=== PATIENT | female | born 1990 | race African-American/Black ===

== ENCOUNTER 2023-02-17 11:41 | Observation (INO) | payer OTHER, SELFPAY ==
--- NOTE | 2023-02-17 16:00 | OBADM ---
This patient, Parvin Monroy, admitted to the OB room Labor/Delivery/Recovery 103 for observation. Patient/family oriented to hospital policies and general routines including ID bracelet, bed and alarms, visiting hours, pain management, procedures, bathroom and other care routines, personal items, smoking policy, room service/diet, and visiting hours. Patient/Family are encouraged to report perceived risks to care and to ask questions if they do not understand what they are told or what they should do.
--- NOTE | 2023-02-24 07:50 | PM.OBTRLD ---
OB - Triage/Final Diagnosis Visit Information Comments/Additional reasons for admission: I have assessed the risk for this patient, Parvin Monroy, and determined that she would benefit from observation care. Final Diagnosis (1) False labor after 37 completed weeks of gestation: Code(s): O47.1 - False labor at or after 37 completed weeks of gestation Status: Acute
== END 2023-02-17 14:35 | disposition home or self-care (01) ==
PROVIDERS: Admitting Provider Obstetrics & Gynecology; Visit Provider Obstetrics & Gynecology
DX: O47.1 False labor at or after 37 completed weeks of gestation (principal); Z3A.38 38 weeks gestation of pregnancy
CPT/HCPCS: 96365; 96375; A9270; G0378; G0379; J1200; J1756

== ENCOUNTER 2023-02-22 05:57 | Inpatient (IN) | payer OTHER, SELFPAY ==
[2023-02-22] VITALS (192 sets, daily range): BP systolic 96–130; BP diastolic 55–88; PULSE 64–133; RESP 16–18; TEMP 36.4–36.9; O2SAT 63–100; BMI 41.4
[2023-02-22 06:47] LABS: Basophils Percent Auto 0.4 % (0.2-1.2); Eosinophils Absolute Auto 0.1 K/mm3 (0-0.3); Eosinophils Percent Auto 0.7 % (0-4.4); Hematocrit 28.9 % (37.0-47.0); Hemoglobin 8.8 g/dL (12.0-15.0); Immature Granulocyte Absolute 0.21 K/mm3 (0.00-0.031); Immature Granulocyte Percent A 2.6 % (0-0.5); Lymphocytes Absolute Auto 1.93 K/mm3 (0.9-3.2); Mean Corpuscular HGB Conc 30.4 g/dl (32-36); Mean Corpuscular Hemoglobin 23.8 pg (26-34); Mean Corpuscular Volume 78.3 fl (80-100); Mean Platelet Volume 9.8 fl (7.4-10.4); Monocytes Absolute Auto 0.4 K/mm3 (0.1-0.6); Monocytes Percent Auto 4.8 % (2.6-8.5); Neutrophils Absolute Auto 5.4 K/mm3 (1.3-6.7); Neutrophils Percent Auto 67.5 % (45.5-73.1); Platelet Count Result 205 k/mm3 (150-375); Red Blood Count 3.69 M/mm3 (4.2-5.4); White Blood Count 8.1 K/mm3 (4.5-10.0)
[2023-02-22] MEDS: LACTATED RINGERS 1,000 ML 125 ML IV CONT ×3 (07:07→20:07)
[2023-02-22 07:08] LABS: Anisocytosis 2+ (NORMAL); Hypochromasia 1+ (NORMAL); Macrocytosis 1+ (NORMAL); Microcytosis 1+ (NORMAL); Platelet Estimate Adequate (Adequate)
[2023-02-22 07:09] LABS: Schistocytes None Seen (NORMAL)
--- NOTE | 2023-02-22 07:29 | P.HP_ITS ---
H&P: HPI History of Present Illness Date/Time: 02/22/23 07:29 Chief Complaint: induction of labor Narrative: Parvin is a 33yo at 39.3 IOL for IUGR. Was scheduled for 39.0 but had no child care supervisor and had to cancel. Baby IUGR by AC 4%, EFW around 13-14%. She also has late care at 29w, anemia and has received two sets of IV iron. Review of Systems Review of Systems: All systems reviewed & are unremarkable except as noted in HPI and below [facility] Family History Family History Mother Hypertension Diabetes mellitus Grandparent Hypertension Diabetes mellitus Social History Social History Smoking status: Never smoker Substance use: never Lack of Transportation: No Lack of Food: Never True Current Housing: I Have Housing Concerned About Future Housing: No Difficulty Paying Gas/Electric Bills: No Difficulty Paying for Meds: No Currently Unemployed: No Education: Bachelor's Degree Difficulty w/ Childcare or Family Care: No Spiritual care concerns: No Meds Home Medications and Allergies Home Medications Medication Instructions Recorded Confirmed Type ferrous sulfate 325 mg (65 mg 325 mg PO BID 06/03/19 02/16/23 History iron) tablet vit no.95-ferrous 1 tablet PO DAILY 06/03/19 02/22/23 History fumarate 28 mg-folic acid 800 mcg tablet () Allergies Allergy/AdvReac Type Severity Reaction Status Date / Time No Known Allergies Allergy Unknown Unknown Verified 02/16/23 09:16 Vital Signs Vital Signs - 24 hr 02/22/23 06:31 02/22/23 06:46 02/22/23 07:01 Pulse Rate 77 70 75 Blood Pressure 107/67 112/68 105/67 Oxygen Delivery 02/22/23 07:16 02/22/23 07:11 Pulse Rate 74 Blood Pressure 96/70 L Oxygen Delivery Room Air Exam Const: General: no acute distress Resp: Effort & Inspection: normal respiratory effort Auscultation: clear to auscultation bilaterally Cardio: Rate: regular rate Rhythm: regular rhythm GI: GI Palp: Yes Soft to palpation Extrem: General: normal to inspection H&P: Results Labs Labs: Short CBC 02/22/23 Range/Units 06:43 WBC 8.1 (4.5-10.0) K/mm3 Hgb 8.8 L (12.0-15.0) g/dL Hct 28.9 L (37.0-47.0) % Plt Count 205 (150-375) k/mm3 Assessment and Plan Assessment and plan (1) IUGR (intrauterine growth restriction): Status: Acute (2) Anemia affecting : Code(s): O99.019 - Anemia complicating , unspecified trimester Status: Acute (3) Late care: Code(s): O09.30 - Supervision of with insufficient care, unspecified trimester Status: Acute Plan FHT category 1 GBS neg pitocin per protocol AROM clear IUPC placed SVE 4.5/80/-3/soft
[2023-02-22 10:57] LABS: Rapid Plasma Reagin Non-Reactive (NonReactive)
--- NOTE | 2023-02-22 11:09 | WPDANESEPP ---
Anes - Eval Pre Procedure Procedure: Labor Epidural Date/Time: 02/22/23 11:09 Surgeon: Armando Preop Diagnosis: Labor Pain Pre Op Diagnosis: IOL Patient Data Age: 33 Gender: F Height: 1.78 m Weight: 131 kg Last Vital Signs Pulse 81 02/22/23 11:07 BP 107/63 02/22/23 11:07 Pulse Ox 99 02/22/23 11:06 O2 Del Method Room Air 02/22/23 07:11 Allergies Allergy/AdvReac Type Severity Reaction Status Date / Time No Known Allergies Allergy Unknown Unknown Verified 02/16/23 09:16 Home Medications Medication Instructions Recorded Confirmed Type ferrous sulfate 325 mg (65 mg 325 mg PO BID 06/03/19 02/16/23 History iron) tablet vit no.95-ferrous 1 tablet PO DAILY 06/03/19 02/22/23 History fumarate 28 mg-folic acid 800 mcg tablet () Laboratory Tests 02/22/23 02/22/23 06:42 06:43 WBC 8.1 K/mm3 (4.5-10.0) RBC 3.69 L M/mm3 (4.2-5.4) Hgb 8.8 L g/dL (12.0-15.0) Hct 28.9 L % (37.0-47.0) MCV 78.3 L fl (80-100) MCH 23.8 L pg (26-34) MCHC 30.4 L g/dl (32-36) RDW 23.0 H % (11.5-14.5) Plt Count 205 k/mm3 (150-375) MPV 9.8 fl (7.4-10.4) Immature Gran % (Auto) 2.6 H % (0-0.5) Neut % (Auto) 67.5 % (45.5-73.1) Lymph % (Auto) 24.0 % (18.3-44.2) [place] % (Auto) 4.8 % (2.6-8.5) Eos % (Auto) 0.7 % (0-4.4) Baso % (Auto) 0.4 % (0.2-1.2) Lymph # (Auto) 1.93 K/mm3 (0.9-3.2) [place] # (Auto) 0.4 K/mm3 (0.1-0.6) Eos # (Auto) 0.1 K/mm3 (0-0.3) Baso # (Auto) 0.0 K/mm3 (0.0-0.1) Abs Immat Gran (auto) 0.21 H K/mm3 (0.00-0.031) Absolute Neuts (auto) 5.4 K/mm3 (1.3-6.7) Absolute Nucleated RBC 0.0 K/mm3 (0.0-0.012) Nucleated RBC % 0.0 % (0.0-0.2) Platelet Estimate Adequate (Adequate) Hypochromasia 1+ (NORMAL) Anisocytosis 2+ (NORMAL) Microcytosis 1+ (NORMAL) Macrocytosis 1+ (NORMAL) Schistocytes None seen (NORMAL) RPR Non-reactive (NonReactive) Blood Type O Positive Antibody Screen Negative Patient hx anesthesia problems: none and other (h/o PDPH, blood patch) Family hx anesthesia problems: none Results Review: All pre-operative results and documents have been reviewed as part of the pre-operative evaluation. [facility] Family History Family History Mother Hypertension Diabetes mellitus Grandparent Hypertension Diabetes mellitus Social History Social History Smoking status: Never smoker Substance use: never Lack of Transportation: No Lack of Food: Never True Current Housing: I Have Housing Concerned About Future Housing: No Difficulty Paying Gas/Electric Bills: No Difficulty Paying for Meds: No Currently Unemployed: No Education: Bachelor's Degree Difficulty w/ Childcare or Family Care: No Spiritual care concerns: No Exam Day of Procedure 02/22/23 11:09 Patient weight: morbidly obese Heart: regular rate and rhythm Lungs: normal air movement Airway: Mallampati scale class III Neurological: alert and oriented
[2023-02-22] MEDS: OXYTOCIN 30 UNITS/NS 500 ML 30 UNITS/500 ML BAG IV CONT (11:12)
[2023-02-22] MEDS: ACETAMINOPHEN 500 MG TABLET 1000 MG PO (12:13)
[2023-02-22] MEDS: OXYTOCIN 30 UNITS/NS 500 ML 30 UNITS/500 ML BAG 125 UNITS IV CONT (17:39)
--- NOTE | 2023-02-22 18:28 | PM.OBPRVD ---
OB - Delivery Note Procedure Delivery date: 02/22/23 Procedure: Induction method: AROM and Per Pitocin Protocol Delivery monitor: External FHT and Internal Uterine Route of delivery: Laceration Description: Perineal - 2nd Degree and Vaginal (multiple vaginal vault lacs) Delivery repair: vicryl Quantitative Blood Loss (ml): 965 (due to vault lacs) Anesthesia type: Epidural Disposition: Floor Complications: hemorrhage due to vault lacs, see note Narrative: With adequate expulsive efforts by the mother, the baby's head was delivered straight OP. The baby's anterior shoulder was delivered under the pubic symphysis without difficulty. Nuchal cord x3 reduced. The posterior shoulder and the rest of the baby delivered without difficulty. The was placed on the mothers chest and suctioned and stimulated. The cord was clamped and cut after 30 seconds. Mother and baby both stable. Following spontaneous delivery of the placenta, the second degree laceration was repaired. Hemorrhage was identified to continue, and atony was ruled out as a cause. Examination revealed multiple vaginal vault lacerations. Three of them were repaired, but the midline portion the sutures persistently pulled through the swollen tissue and hemostasis was not obtained after multiple attempts. A second IV was started, fluid bolus was given, and 2 units of blood were ordered. Pressure was held for 5 minutes with no bleeding while the pressure was held. Surgiflow was placed over the area and vaginal packing was placed. The vaginal packing was watched for 10 minutes and did not soak through. Baby Date of : 02/22/23 Time of : 17:01 Weeks of gestation at delivery: 39 Infant gender: Female Weight (pounds): 7 Weight (ounces): 14 presentation: vertex Placenta delivery description: Spontaneous Cord Vessel Description: 3 Vessels, Nuchal Cord (x3) and Delayed Cord Clamping score one minute: 9 score five minutes: 9
[2023-02-22 18:33] LABS: Hematocrit 28.8 % (37.0-47.0); Hemoglobin 8.8 g/dL (12.0-15.0)
[2023-02-22] MEDS: diphenhydrAMINE HCl INJ 50 MG/ML VIAL 25 MG IV PUSH (18:58)
[2023-02-22] MEDS: fentaNYL CITRATE INJ (*CRX) 100 MCG/2 ML VIAL 50 MCG IV PUSH (19:17)
[2023-02-22] MEDS: IBUPROFEN 600 MG TABLET PO (20:05)
[2023-02-22] MEDS: BENZOCAINE 20% AER SPR (*SP) 56 GM CAN 1 SPRAY TOPICAL (20:07)
[2023-02-22] MEDS: WITCH HAZEL 40 PADS 1 PAD TOPICAL (20:07)
[2023-02-22] MEDS: ceFAZolin 2 GM/D5W 50 ML 2 GM/50 ML BAG IVPB (20:07)
[2023-02-22] MEDS: HYDROcodone/acetaminophen (*CRX) 5-325 MG TABLET 1 TAB PO (22:06)
[2023-02-23] VITALS: BP 102/57; PULSE 78; RESP 16; TEMP 36.7
[2023-02-23] MEDS: HYDROcodone/acetaminophen (*CRX) 5-325 MG TABLET 1 TAB PO (04:00)
[2023-02-23 05:53] LABS: Hematocrit 27.3 % (37.0-47.0); Hemoglobin 8.5 g/dL (12.0-15.0)
--- NOTE | 2023-02-23 07:23 | PM.OBPNVD ---
OB - PN: Subj Subjective Date/time seen: 02/23/23 07:23 [place] baby status: doing well feeding status: breast and bottle feeding Narrative: back and vaginal pain. minimal pink bleeding through the vaginal pack. Hgb 8.5 after 2 units. Denies dizziness/GUTIERREZ. OB - PN: Obj Data Labs 02/23/23 04:02 Labs: Laboratory Results - last 24 hr 02/22/23 02/22/23 02/22/23 06:42 06:43 18:09 Hgb 8.8 L Hct 28.8 L RPR Non-reactive Blood Type O Positive Antibody Screen Negative Crossmatch See Detail 02/23/23 04:02 Hgb 8.5 L Hct 27.3 L RPR Blood Type Antibody Screen Crossmatch OB - PN A/P Plan day: 1 Plan: routine care Comments: vag pack removed, bleeding appears to have stopped, will monitor closely, discussed with RN repeat h/h in am tomorrow s/p 2 units pRBCs no sx anemia Time Spent With Patient Time: Total time spent is greater than 50% in coordination of care (as documented) at patient's floor/unit and/or counseling patient: Time with patient: less than 15 minutes Exam Narrative: NAD abdomen soft, nontender, fundus firm below the umbilicus Extremities nontender, 1+ edema vaginal packing removed. old dark blood and clot on it, no bright red blood seen on packing or at introitus.
[2023-02-23 08:34] VITALS: BP 119/71; PULSE 84; RESP 18; TEMP 36.2; O2SAT 100
[2023-02-23] MEDS: IRON SUCROSE COMPLEX 200 MG in SODIUM CHLORIDE 0.9% IV 50 ML 120 MG IVPB (09:00)
--- NOTE | 2023-02-23 10:10 | WPDANLDPN2 ---
Anes-Prog Note L&D Date/Time: 02/23/23 10:10 Comfortable throughout: labor and delivery Neuraxial method: epidural Epidural/Spinal procedure site: clean & non-tender Neuro status: Neuro function grossly intact. Cardiovascular status: normal Respiratory status: normal Airway patency: baseline Mental status: baseline Post-Op hydration status: normal Vital Signs: Last Vital Signs Temp 36.2 C L 02/23/23 08:34 Pulse 84 02/23/23 08:34 Resp 18 02/23/23 08:34 BP 119/71 02/23/23 08:34 Pulse Ox 100 02/23/23 08:34 O2 Del Method Room Air 02/22/23 07:11 Pain score (VAS): 0 I/O: Intake & Output 02/22/23 02/23/23 02/23/23 23:59 07:59 15:59 Intake Total 2180 281 Balance 2180 281 Post-procedural complaints: none Patient feedback: Patient satisfied with anesthetic care.
[2023-02-23] MEDS: SODIUM CHLORIDE 0.9% IV 250 ML 30 ML IV CONT (10:15)
[2023-02-23] MEDS: MULTIVIT/MIN/PREN/FOL AC/IRON TABLET 1 TAB PO (10:30)
[2023-02-23] MEDS: WITCH HAZEL 40 PADS 1 PAD TOPICAL (10:30)
[2023-02-23] MEDS: DOCUSATE SODIUM 100 MG CAPSULE PO (10:30)
[2023-02-23] MEDS: BENZOCAINE 20% AER SPR (*SP) 56 GM CAN 1 SPRAY TOPICAL (10:30)
[2023-02-23] MEDS: LANOLIN (LANSINOH) 7.5 GM CREAM 1 APPLIC TOPICAL (10:30)
[2023-02-23] MEDS: IBUPROFEN 600 MG TABLET PO ×2 (10:30→17:50)
[2023-02-23 12:26] VITALS: BP 123/72; PULSE 75; RESP 20; TEMP 36.2; O2SAT 99
--- NOTE | 2023-02-23 12:50 | PC.NURSE ---
[id number] Report received this morning regarding infant had been bottle fed 60mls at 0300 was incorrect. Mother fed a bottle at 0200 11mls and has attempted to breastfeed with no success and did not call for assistance. Introductions were made to assess needs once it was discovered that mother had been attempting at breast with no assistance and not bottle feeding either. Primary RN reported that she checked a blood sugar and it resulted at 74mg/dl. Mother works with her with a lot of encouragement and education. Encouraged understanding of the benefits of skin to skin (demonstrating unwrapping and placing upright on her chest), stimulating with massage touch, changing positions to encourage wakefulness, burping, checking the diaper, how to watch for early feeding cues, responsive feeding, feeding on demand (aiming for 8-12 times in 24 hours, about every 2-3 hours), milk production, hand expression, building/maintaining a milk supply, duration of feeding, signs of adequate intake/output and how to record on the feeding sheet. Infant demonstrates rare feeding cues and when they are demonstrated to mother, then we reviewed positioning, alignment, supporting the breast to facilitate a deep latch, asymmetrical latch (off-center), leading with the chin with a big, open, wide gape and body close to mother. is reluctant to open mouth and shows no efforts to latch to the breast. RN assisted mother in learning the skill of hand expression. was spoon fed three dime size drops of colostrum and mother observed her infant lapping up the milk off of the spoon. Mother voiced understanding of skin to skin, stimulating with massage touch, responsive feedings, hand expressed colostrum, talking to infant to encourage if it has been 2 -2.5 hours since the start of the last , to call if does not latch, or if there is discomfort with . was place upright [id number] with massage touch and went back to sleep. Mother states for the second time that this is what her first infant did. Encouraged mother to parent with wakefulness and calling for assistance to attempt again in 1-2 hours. Resources provided for inpatient with name written on the communication board. Mother voiced understanding of information and will call if there is a request for assistance. Reported to the Primary RN.
--- NOTE | 2023-02-23 14:02 | PCCCNOTE ---
Recvd consult due to pt. late to receive care. Pt. reports this is because she was in denial and working alot. Pt. reports having no concerns about the possible discharge home tomorrow 02/24. Pt. will be living at home with new baby, 3 year old son, and pt's grandmother. Pt. reports her grandmother is caring for her son while in the hospital. Pt. states her grandmother, her mother, and her S.O. are all supportive and that she has baby supplies. Pt. reports established with [facility], and in process of applying for [employer] [place]. Pt. states when she only had one child, she was over income for [employer] [place]. Pt. denies any prior DCFS involvement, and drug use during . resources provided to pt. Pt. states has first appt with oven worker on 02/26/23. Pt. denies further case management needs.
[2023-02-23 16:00] VITALS: BP 110/73; PULSE 81; RESP 18; TEMP 37; O2SAT 100
[2023-02-23 18:20] VITALS: BP 105/66; PULSE 76; RESP 20; TEMP 36.4; O2SAT 100
[2023-02-23] MEDS: ACETAMINOPHEN 325 MG TABLET 650 MG PO (23:01)
[2023-02-24 04:59] LABS: Hematocrit 30.4 % (37.0-47.0); Hemoglobin 9.5 g/dL (12.0-15.0)
--- NOTE | 2023-02-24 07:22 | PM.OBPNVD ---
OB - PN: Subj Subjective Date/time seen: 02/24/23 07:22 Patient comments: no complaints and pain well controlled baby status: doing well [place] feeding status: breast and bottle feeding OB - PN: Obj Data Labs 02/24/23 04:14 Labs: Laboratory Results - last 24 hr 02/24/23 04:14 Hgb 9.5 L Hct 30.4 L OB - PN A/P Plan day: 2 Plan: routine care and discharge home Comments: H/H stable, minimal vaginal bleeding Home today, precautions given Time Spent With Patient Time: Total time spent is greater than 50% in coordination of care (as documented) at patient's floor/unit and/or counseling patient: Time with patient: less than 15 minutes Exam Narrative: NAD abdomen soft, nontender, fundus firm below the umbilicus Extremities nontender, 1+ edema
--- NOTE | 2023-02-24 07:26 | P.DS_ITS ---
DS: Admitting Diagnosis Discharge Date 02/24/23 Admitting Diagnosis term IUP, IOL DS: Discharge Diagnosis Discharge Diagnosis (1) hemorrhage of vagina: Code(s): O72.1 - Other immediate hemorrhage Status: Acute (2) , delivered: Code(s): O80 - Encounter for full-term uncomplicated delivery Status: Acute OB - DS: Summary Hospital Course Hospital Course: Parvin is a 33yo who presented for induction of labor. She proceeded to have a vaginal delivery, straight OP, and had extensive vaginal vault lacerations which led to QBL of 965cc. She received 2 units of pRBCs. She was discharged home on PPD 2 in stable condition. OB Procedures : Ultrasound OB Procedures Intrapartum: Spontaneous Vag Delivery OB Procedures: : Transfusion Peripartum Data Delivery Method: Natural Vaginal complications: none Status at Discharge Functional status at discharge: independent ambulation Time Spent with Patient Time attestation: Total time spent providing and/or coordinating discharge services: Exam Narrative: NAD abdomen soft, appropriately tender Ext non tender, 1+ edema DS: Data Data Completed and Pending Pending studies at discharge: Pending at discharge 02/22/23 17:01 Surgical [PTH] Routine Labs on day of discharge: Labs from last 24 hours 02/24/23 04:14 Hgb 9.5 L Hct 30.4 L Discharge Plan Discharge Attending physician on discharge: Velma Vergara Discharging Clinician: Velma Vergara Anticipated Discharge Date/Time: 02/24/23 07:24 Patient Disposition: Home, Self-Care Activity: pelvic rest Diet: regular Patient Instructions: Antibiotic Form Stand Alone Forms: General Discharge Information Follow-up/Referrals: Velma Vergara MD [Physician] - 4 Weeks Discharge Medications: Continued PNV cmb#95-ferrous fumarate-FA [] 28 mg iron- 800 mcg Tablet 1 tablet PO DAILY ferrous sulfate 325 mg (65 mg iron) Tablet 325 mg PO BID Date of admission: 02/22/23 05:57 Primary Care Provider: PHYSICIAN,PUBLICITY MANAGER Admitting Provider: Yannick Roberts Attending physician on admission: Yannick Roberts Condition: Stable
[2023-02-24] MEDS: WITCH HAZEL 40 PADS 1 PAD TOPICAL (07:37)
[2023-02-24] MEDS: MULTIVIT/MIN/PREN/FOL AC/IRON TABLET 1 TAB PO (08:03)
[2023-02-24] MEDS: IRON SUCROSE COMPLEX 200 MG in SODIUM CHLORIDE 0.9% IV 50 ML 120 MG IVPB (08:03)
[2023-02-24] MEDS: IBUPROFEN 600 MG TABLET PO (08:03)
[2023-02-24] MEDS: DOCUSATE SODIUM 100 MG CAPSULE PO (08:03)
[2023-02-24 08:35] VITALS: BP 108/63; PULSE 78; RESP 18; TEMP 36.4; O2SAT 100
[2023-02-25 09:14] VITALS: BP 117/64; PULSE 78; RESP 18; TEMP 37.1; O2SAT 98
== END 2023-02-24 12:15 | disposition home or self-care (01) | DRG 560 ==
LOC: ANHOB2 02-24 11:10 → ANHLDR 02-25 11:13 → ANHOB2 02-25 11:13
PROVIDERS: Obstetrics & Gynecology; Admitting Provider Obstetrics & Gynecology; Visit Provider Obstetrics & Gynecology
DX: O36.5930 Maternal care for other known or suspected poor fetal growth, third trimester, not applicable or unspecified (principal); Z37.0 Single live birth; Z3A.39 39 weeks gestation of pregnancy; O99.02 Anemia complicating childbirth; D50.9 Iron deficiency anemia, unspecified; O72.1 Other immediate postpartum hemorrhage; O70.1 Second degree perineal laceration during delivery; O69.81X0 Labor and delivery complicated by cord around neck, without compression, not applicable or unspecified
CPT/HCPCS: 36415; 36430; 85014; 85018; 85025; 86592; 86850; 86900; 86901; 86923; 88307; A9270; J0690; J1200; J1756; J2590; J2795; J3010; J7050; J7120; P9016

== ENCOUNTER 2023-03-03 16:15 | Outpatient (CLI) | payer OTHER, SELFPAY ==
[2023-03-03] VITALS (10 sets, daily range): BP systolic 119–148; BP diastolic 62–74; PULSE 42–54; RESP 18; TEMP 36.2; BMI 37.3
--- NOTE | 2023-03-03 16:39 | PC.NURSE ---
Order received from Dr. Vergara for pain meds, labs, and consult anesthesia for possible spinal headache.
--- NOTE | 2023-03-03 16:39 | OBADM ---
This patient, Parvin Monroy, admitted to the OB room 117 for observation for headache. Patient/family oriented to hospital policies and general routines including ID bracelet, bed and alarms, visiting hours, pain management, procedures, bathroom and other care routines, personal items, smoking policy, room service/diet, and visiting hours. Patient/Family are encouraged to report perceived risks to care and to ask questions if they do not understand what they are told or what they should do. Dr. Vergara informed of pt's arrival with c/o headache since delivery when she is upright that significantly decreases when she lays flat. Sometimes has blurred vision when she is upright with a severe headache. Denies epigastric/RUQ pain. DTR's 2+ and no clonus. Edema in ankles. BP 140/67. BP's after delivery were more 110's over 60's. Denies history of hypertension.
--- NOTE | 2023-03-03 16:50 | PC.NURSE ---
Barney Renae BASE FILLER informed of consult for possible spinal headache.
--- NOTE | 2023-03-03 17:08 | PC.NURSE ---
Dr. Levy here to evaluate pt and decision made to proceed with epidural blood patch. Consent obtained.
[2023-03-03] MEDS: ACETAMINOPHEN/BUTALBITAL/CAFFEINE 325-50-40 MG TABLET (FIORICET) 1 TAB PO (17:11)
[2023-03-03] MEDS: IBUPROFEN 600 MG TABLET PO (17:12)
[2023-03-03 17:36] LABS: Basophils Percent Auto 0.4 % (0.2-1.2); Eosinophils Absolute Auto 0.2 K/mm3 (0-0.3); Eosinophils Percent Auto 2.1 % (0-4.4); Hematocrit 31.3 % (37.0-47.0); Hemoglobin 9.5 g/dL (12.0-15.0); Immature Granulocyte Absolute 0.08 K/mm3 (0.00-0.031); Lymphocytes Absolute Auto 1.75 K/mm3 (0.9-3.2); Lymphocytes Percent Auto 22.6 % (18.3-44.2); Mean Corpuscular HGB Conc 30.4 g/dl (32-36); Mean Corpuscular Hemoglobin 24.7 pg (26-34); Mean Corpuscular Volume 81.3 fl (80-100); Mean Platelet Volume 9.5 fl (7.4-10.4); Monocytes Absolute Auto 0.6 K/mm3 (0.1-0.6); Monocytes Percent Auto 7.1 % (2.6-8.5); Neutrophils Absolute Auto 5.2 K/mm3 (1.3-6.7); Neutrophils Percent Auto 66.8 % (45.5-73.1); Platelet Count Result 292 k/mm3 (150-375); Red Blood Count 3.85 M/mm3 (4.2-5.4); Red Cell Distribution Width 19.9 % (11.5-14.5); White Blood Count 7.8 K/mm3 (4.5-10.0)
--- NOTE | 2023-03-03 17:40 | PC.NURSE ---
Pt positioned on side of bed, prepped by Dr. Levy and procedure started. Pt states headache is currently only an 8 with sitting up since pain meds given.
[2023-03-03 17:53] LABS: Alanine Aminotransferase 12 U/L (6-35); Albumin Level 3.6 g/dL (3.5-5.1); Alkaline Phosphatase 57 U/L (38-126); Anion Gap 6 mmol/L (8-16); Aspartate Amino Transferase 16 U/L (14-36); Bilirubin,Total 0.6 mg/dL (0.2-1.3); Blood Urea Nitrogen 6 mg/dL (7-17); Calcium 8.5 mg/dL (8.4-10.2); Carbon Dioxide 26 mmol/L (22-30); Chloride 107 mmol/L (98-107); Estimated Glomerular Filt Rate > 60; Glucose 87 mg/dL (65-110); Potassium 3.5 mmol/L (3.4-5.0); Sodium 139 mmol/L (137-145); Uric Acid 6.3 mg/dL (2.5-7.5)
--- NOTE | 2023-03-03 17:55 | WPDANESEPPF ---
Anes - Initial Pre Proc Eval Date/Time: 03/03/23 17:55 Surgeon: Velma Vergara MD Pre Op Diagnosis: headache Patient Data Age: 33 Gender: F Height: Weight: Last Vital Signs Pulse 54 L 03/03/23 17:54 BP 130/65 03/03/23 17:54 Allergies Allergy/AdvReac Type Severity Reaction Status Date / Time No Known Allergies Allergy Unknown Unknown Verified 02/16/23 09:16 Home Medications Medication Instructions Recorded Confirmed Type ferrous sulfate 325 mg (65 mg 325 mg PO BID 06/03/19 02/16/23 History iron) tablet vit no.95-ferrous 1 tablet PO DAILY 06/03/19 02/22/23 History fumarate 28 mg-folic acid 800 mcg tablet () Laboratory Tests 03/03/23 17:23 WBC 7.8 K/mm3 (4.5-10.0) RBC 3.85 L M/mm3 (4.2-5.4) Hgb 9.5 L g/dL (12.0-15.0) Hct 31.3 L % (37.0-47.0) MCV 81.3 fl (80-100) MCH 24.7 L pg (26-34) MCHC 30.4 L g/dl (32-36) RDW 19.9 H % (11.5-14.5) Plt Count 292 k/mm3 (150-375) MPV 9.5 fl (7.4-10.4) Immature Gran % (Auto) 1.0 H % (0-0.5) Neut % (Auto) 66.8 % (45.5-73.1) Lymph % (Auto) 22.6 % (18.3-44.2) [place] % (Auto) 7.1 % (2.6-8.5) Eos % (Auto) 2.1 % (0-4.4) Baso % (Auto) 0.4 % (0.2-1.2) Lymph # (Auto) 1.75 K/mm3 (0.9-3.2) [place] # (Auto) 0.6 K/mm3 (0.1-0.6) Eos # (Auto) 0.2 K/mm3 (0-0.3) Baso # (Auto) 0.0 K/mm3 (0.0-0.1) Abs Immat Gran (auto) 0.08 H K/mm3 (0.00-0.031) Absolute Neuts (auto) 5.2 K/mm3 (1.3-6.7) Absolute Nucleated RBC 0.0 K/mm3 (0.0-0.012) Nucleated RBC % 0.0 % (0.0-0.2) Sodium 139 mmol/L (137-145) Potassium 3.5 mmol/L (3.4-5.0) Chloride 107 mmol/L (98-107) Carbon Dioxide 26 mmol/L (22-30) Anion Gap 6 L mmol/L (8-16) BUN 6 L mg/dL (7-17) Creatinine 0.60 L mg/dL (0.7-1.0) Estim Creat Clear Calc Not Reportable Estimated GFR > 60 (59 - ) Glucose 87 mg/dL (65-110) Uric Acid 6.3 mg/dL (2.5-7.5) Calcium 8.5 mg/dL (8.4-10.2) Total Bilirubin 0.6 mg/dL (0.2-1.3) AST 16 U/L (14-36) ALT 12 U/L (6-35) Alkaline Phosphatase 57 U/L (38-126) Total Protein 7.0 g/dL (6.3-8.2) Albumin 3.6 g/dL (3.5-5.1) Patient hx anesthesia problems: none Family hx anesthesia problems: none Results Review: All pre-operative results and documents have been reviewed as part of the pre-operative evaluation. [facility] Past Medical History Medical History (Updated 03/03/23 @ 17:57 by Blaise Levy MD) Obesity Family History Family History Mother Hypertension Diabetes mellitus Grandparent Hypertension Diabetes mellitus Social History Social History Smoking status: Never smoker Substance use: never Lack of Transportation: No Lack of Food: Never True Current Housing: I Have Housing Concerned About Future Housing: No Difficulty Paying Gas/Electric Bills: No Difficulty Paying for Meds: No Currently Unemployed: No Education: Bachelor's Degree Difficulty w/ Childcare or Family Care: No Spiritual care concerns: No Anes - Eval Final PreProcedure Day of Procedure 03/03/23 17:55 Patient weight: obese Heart: regular rate and rhythm Lungs: clear to auscultation Airway: Mallampati scale class II Neurological: alert and oriented Last oral intake: 4 hours ASA classification: III Emergent: no Anesthetic plan: proceed Anesthesia type and monitoring: regional epidural (blood patch) Results Review: All pre-operative results and documents have been reviewed as part of the pre-operative evaluation. Informed Consent: The patient's anesthetic plan of Epidural blood patch under sterile conditions and its attendant risks and benefits were discussed with the patient/family/POA. Questions were solicited an
--- NOTE | 2023-03-03 17:58 | WPDANESEBPP ---
Anes - Epidural Blood Patch PN Date/Time: 03/03/23 17:58 Consent: I have discussed with the patient/family/POA, the rationale of a lumbar epidural autologous blood patch for the treatment of post-dural puncture headache (spinal headache), including associated potential risks, benefits, complications and side effects. I have also discussed more conservative treatment options such as intravenous hydration, caffeine and non-prescription analgesics. The patient/family/POA, understand(s) and wish(es) to proceed with epidural autologous blood patch as treatment for the patient's post-dural puncture headache. Time-Out: A pre-procedural Time-Out was completed immediately before starting the procedure and confirmed: Patient Identification, Site, Procedure, Patient Position and the Availability of Requisite Equipment. Clinical Indications: Pt is 8 days post with GUTIERREZ developing on day 1 of epidural. symptoms worsening this week. pt. describes classic presentation of PDPH with frontal GUTIERREZ worsening in upright position and near complete relief when supine. Pt had same issue in 2020. Risks benefits, procedure and alternatives were discussed. Epidural Insertion Note Patient position: sitting Skin prep: chlorhexidine Needle: 18 gauge Tuohy-Schliff Technique: loss of resistance Skin anesthesia: lidocaine 1% Observations: tolerated well and other (16 cc of blood drawn sterile injected slowly into epidural space until patient began to feel mild pressure in low back and hips. Epidural space was found easily and catheter threaded and removed prior to injection. Negative for CSF and heme after careful aspiration.) Complications: none
--- NOTE | 2023-03-03 18:55 | PC.NURSE ---
Anesthesia at bedside to assess pt. May D/C home 1hr after blood patch.
--- NOTE | 2023-03-03 19:30 | PC.NURSE ---
Pricila Peralta CNM on unit. Lab results given. October D/C home.
== END 2023-03-03 20:05 | disposition home or self-care (01) ==
LOC: ANHOBOP 16:19 → ANHOBPP 16:20
PROVIDERS: Visit Provider Obstetrics & Gynecology
DX: O13.5 Gestational [pregnancy-induced] hypertension without significant proteinuria, complicating the puerperium (principal); O89.4 Spinal and epidural anesthesia-induced headache during the puerperium
CPT/HCPCS: 36415; 62273; 80053; 84550; 85025; 99199; A9270